=== PATIENT | female | born 1980 | race Caucasian/White ===

== ENCOUNTER 2018-08-20 08:19 | Emergency (ER) | payer SELFPAY ==
[2018-08-20 08:23] VITALS: BP 114/73; PULSE 76; TEMP 98; BMI 34.7
[2018-08-20] MEDS ORDERED: KETOROLAC TROMETHAMINE 60 MG/2 ML VIAL IM ONE (08:37)
[2018-08-20] MEDS ORDERED: AMOXICILLIN 500 MG CAPSULE (FP) PO ONE (08:37)
--- NOTE | 2018-08-20 08:37 | PDOC ---
History of Present Illness - General Chief Complaint: Toothache Stated Complaint: SEVERE TOOTH ACHE Time Seen by Provider: 08/20/18 08:29 History Source: Patient Exam Limitations: No Limitations - History of Present Illness Initial Comments: 08/20/18 08:41 Patient here crying with exquisite pain to her right upper jaw with cracked molar. States had fracture to tooth approximately one month ago a few days ago started to bother her where she woke up yesterday with worsened pain, this also kept her awake last night. Patient states face is mildly swollen however has no fever. Timing/Duration: unsure Severity: moderate, severe Modifying Factors: improves with: medication Associated Symptoms: reports: fever/chills, loss of appetite, malaise Past History - Travel Traveled outside of the country in the last 30 days: No Close contact w/someone who was outside of country & ill: No - Past Medical History Allergies/Adverse Reactions: Allergies Allergy/AdvReac Type Severity Reaction Status Date / Time No Known Allergies Allergy Verified 08/20/18 08:23 Home Medications: Ambulatory Orders Amoxicillin - [Amoxicillin 500mg Capsule -] 500 mg PO TID #21 capsule 08/20/18 Naproxen [Naprosyn -] 500 mg PO BID #30 tablet 08/20/18 Oxycodone HCl/Acetaminophen [Percocet 5-325 mg Tablet -] 1 - 2 tab PO Q4H PRN # 7 tablet MDD 4 08/20/18 Cardiac Disorders: Yes (heart murmur) COPD: No - Immunization History Immunization Up to Date: Yes - Suicide/Smoking/Psychosocial Hx Smoking History: Current every day smoker Number of Cigarettes Smoked Daily: 5 Information on smoking cessation initiated: Yes Hx Alcohol Use: No Drug/Substance Use Hx: No Review of Systems - Review of Systems Able to Perform ROS?: Yes Is the patient limited Tuvaluan proficient: Yes Constitutional: Yes: Symptoms Reported, See HPI, Malaise. No: Fever HEENTM: Yes: Symptoms Reported, See HPI, Mouth Pain, Dental Problems, Mouth Swelling Respiratory: No: Symptoms reported Cardiac (ROS): No: Symptoms Reported Neurological: Yes: Symptoms reported, See HPI, Headache All Other Systems: Reviewed and Negative *Physical Exam - Vital Signs Last Vital Signs Temp Pulse Resp BP Pulse Ox 98 F 76 17 114/73 99 08/20/18 08:22 08/20/18 08:22 08/20/18 08:22 08/20/18 08:22 08/20/18 08:22 - Physical Exam General Appearance: Yes: Nourished, Appropriately Dressed, Apparent Distress, Moderate Distress, Severe Distress HEENT: positive: ROBERT, Normal ENT Inspection, TMs Normal, Pharynx Normal, Nasal Congestion, Rhinorrhea, Other (patient with multiple areas of dental caries and tooth loss. Right upper posterior molar has cracked half to the posterior aspect exposed pulp. 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 intact, Fully Oriented, Alert, Normal Mood/ Affect, Normal Response, Motor Strength 5/5 *DC/Admit/Observation/Transfer Diagnosis at time of Disposition: Pain, dental - Discharge Dispostion Disposition: HOME Condition at time of disposition: Stable Decision to Admit order: No - Referrals Referrals: Delfin Malhotra MD [Primary Care Provider] - - Patient Instructions Printed Discharge Instructions: DI for Dental Pain Additional Instructions: Rest, drink lots of fluids: Teas, water, soups Saltwater gargles/ keep mouth clean and rinse after each meal May use wet teabag for pain relief to area Avoid hard chewing foods, stick to ice cream, Jell-O, yogurt etc. Tylenol or Motrin for fever and pain Complete all medication as prescribed Seek dental appointment as soon as possible for evaluation of dental injury/pain Followup with private physician in one to 2 days as needed Return to emergency department for worsened symptoms, fevers, swelling to face or worsened pain [facility] AT [address] [address] [email or web address]: [phone] - Post Discharge Activity Forms/Work/School Notes: Back to Work
[2018-08-20] MEDS ORDERED: AMOXICILLIN 250 MG CAPSULE ONE (08:40)
[2018-08-20] MEDS ORDERED: KETOROLAC TROMETHAMINE 60 MG/2 ML VIAL ONE (08:40)
== END 2018-08-20 08:49 | disposition home or self-care (01) ==
LOC: JERFT 08:19
PROC: 3E0233Z Introduction of Anti-inflammatory into Muscle, Percutaneous Approach (ICD-10-PCS; principal; 2018-08-20)
DX: K08.89 Other specified disorders of teeth and supporting structures (principal)
CPT/HCPCS: 99281-25